=== PATIENT | male | born 1950 | race Caucasian/White ===

== ENCOUNTER 2016-07-23 08:02 | Inpatient (IN) | payer MEDICARE, OTHER ==
[2016-07-21 16:42] LABS: INTERNATIONAL NORMAL RATI 1.2 UNITS (-); PARTIAL THROMBO TIME 29.7 SEC (22.5-37.2)
[2016-07-21 16:43] LABS: BASOPHILS 0.6 %; BASOPHILS ABSOLUTE 0.06 10/3/uL (0.0-0.16); EOSINOPHILS 6.4 %; EOSINOPHILS ABSOLUTE 0.67 10/3/uL (0.0-0.53); HEMATOCRIT 39.5 % (40.0-51.0); HEMOGLOBIN 12.9 g/dL (13.6-17.8); IMMATURE GRANULOCYTES 0.2 %; IMMATURE GRANULOCYTES ABSOLUTE 0.02 10/3/uL (0.0-0.11); LYMPHOCYTES ABSOLUTE 1.99 10/3/uL (0.67-4.30); MANUAL DIFF NO %; MEAN CORPUS HGB CONC 32.7 g/dL (32.0-36.0); MEAN CORPUSCULAR HEMOGLOB 26.7 pg (26.0-34.0); MEAN CORPUSCULAR VOLUME 81.6 fL (80-100); MEAN PLATELET VOLUME 9.1 fL (9.2-13.0); MONOCYTES ABSOLUTE 0.84 10/3/uL (0.21-1.20); NEUTROPHILS 65.8 %; NEUTROPHILS ABSOLUTE 6.89 10/3/uL (2.02-8.40); PLATELET COUNT 359 10/3/uL (150-400); RBC DISTRIBUTION WIDTH 14.2 % (12.0-16.0); RED CELL COUNT 4.84 10/6/uL (4.7-6.1); WHITE BLOOD CELLS 10.5 10/3/uL (4.5-10.5)
[2016-07-21 16:54] LABS: ALBUMIN 3.9 G/DL (3.5-5.0); ALKALINE PHOSPHATASE 82 U/L (45-117); BUN (BLOOD UREA NITROGEN) 18 MG/DL (6-23); CALCIUM, SERUM 8.5 MG/DL (8.5-10.4); CHLORIDE, SERUM 105 MMOL/L (96-112); CO2 (CARBON DIOXIDE) 26 MMOL/L (24-34); CREATININE 1.03 MG/DL (0.70-1.30); GFR AFRICAN AMERICAN 88 ML/MIN (>=60); GFR NON AFRICAN AMERICAN 76 ML/MIN (>=60); GLOBULIN 3.8 G/DL (2.5-4.1); GLUCOSE, SERUM 93 MG/DL (60-99); POTASSIUM, SERUM 3.9 MMOL/L (3.5-5.3); SGOT(AST) 22 U/L (5-40); SGPT(ALT) 34 U/L (5-65); SODIUM, SERUM 139 MMOL/L (135-148); TOTAL BILIRUBIN 0.5 MG/DL (0-1.2); TOTAL PROTEIN 7.7 G/DL (6.0-8.5)
--- NOTE | ~2016-07-23 | OP ---
Record Of Operation [facility] [address] [place]. 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 PROCEDURE: Laparoscopic right colectomy with resection of terminal ileum and right colon and ileocolonic anastomosis, open partial right hepatectomy. SURGEON: Don Quiñonez M.D. ANESTHESIA: General with intubation. COMPLICATIONS: None. ESTIMATED BLOOD LOSS: 400 mL. SPECIMENS: Terminal ilium, right colon, proximal transverse colon, and partial right hepatectomy. LAP AND SPONGE COUNT: Correct x3. DRAINS: Emil-Godinez in abdominal cavity, Ozark in subcutaneous tissue. BRIEF HISTORY: This 65-year-old male was recently found to have a large mass in the right colon, which on biopsy was found to be malignant. His metastatic workup revealed a single mass in the right posterior hepatic lobe laterally with no evidence for disease elsewhere. It was felt that laparoscopic right colectomy, possible laparotomy, with partial right hepatectomy was indicated. This procedure, the risks, benefits, and alternatives, including not limited to the risk for bleeding, infection, enterotomy, injury to any abdominal structure, postop small bowel obstruction, ileus, incisional hernia, dehiscence, anastomotic leak, requiring reoperation with ileostomy, ureteral injury, prolonged bile leak, bleeding from the liver, and unforeseen complications including deep venous thrombosis, pulmonary embolus, myocardial infarction, stroke, pneumonia, and , were fully and completely explained to the patient and his family at length on several occasions prior to surgery. The fact that this was a major operation with risk for major morbidity and mortality has been explained. The expected length of recovery has been explained. The patient and family had questions, which were answered. They clearly understood the risks and agreed to surgery as planned. It should be noted the hepatic metastasis was in the posterior section of segment 6 of the right hepatic lobe. Record Of Operation [facility] [id number] [place]. [address] NAME: YISEL BLACK : 50 STATUS : ADM IN PAT#: [id number] AGE: 65 ADM/REG DATE : 07/23/16 MR#: [id number] REPORT SERV DATE: 07/23/16 DICTATED BY: DON QUIÑONEZ III DATE: 07/23/16 REPORT STATUS : Draft TRANSCRIBED BY: HANNA DATE: 07/23/16 FINDINGS: The patient had a large cancer in the mid right colon. He had a large cancer in the segment 6 of the right hepatic lobe posteriorly. There was no evidence for disease elsewhere. Clear margins were obtained from each specimen. DESCRIPTION OF PROCEDURE: After being properly identified and after discussing the risks of surgery with the patient and family again in the preoperative area and after an appropriate bowel preparation at home, the patient was taken to the operating room and placed in supine position on the operating room table. General anesthesia was administered. He was intubated without difficulty. A Muro catheter was inserted. The abdomen was prepped and draped sterilely in the usual fashion. After an appropriate "time-out" per JCAHO standards, a small transverse incision was made just below the umbilicus. The skin and fascia on either side of this were elevated with towel clips. A Veress needle was placed through the incision into the peritoneal cavity. Correct position of the needle in the peritoneal cavity was confirmed by the hanging drop test. The abdominal cavity was then insufflated to about 13 mmHg of carbon dioxide. Correct position of air in the peritoneal cavity was confirmed by palpation. The Veress needle was removed and replaced with a 10 mm trocar. The laparoscope was placed through this. A 5 mm trocar was then placed in the midline, midway between the umbilicus and xiphoid process, under direct vision with the laparoscope. Another 5 mm trocar was placed in the midline in the suprapubic area, also under direct vision with the laparoscope. The abdomen was inspected. The area which had been tattooed in the mid right colon was identified. There was no evidence for carcinomatosis or disease elsewhere. The posterior aspect of the right lobe of the liver could not be visualized laparoscopically. The portion of the liver which could be visualized was normal. The appropriate instruments were placed through the trocars. The right colon was grasped and retracted medially. Using sharp dissection, peritoneal reflection of the right colon was divided along the line of Toldt, from the cecum to the hepatic flexure. Full and complete mobilization of the right colon was performed. There were a band of adhesions between the terminal ileum and the right lateral pelvis and this was divided so as to allow for full mobilization of the terminal ileum. After adequate mobilization, a right subcostal incision was made. The incision was continued through subcutaneous tissue. Hemostasis was controlled with cautery. The incision was continued through all layers of fascia. The trocars were removed. The right colon was mobilized into the wound. There was noted be a large mass at the area, which had been tattooed. There was no evidence for carcinomatosis or disease elsewhere. We were able to visualize the single focus of hepatic metastasis in segment in the right posterior aspect of the right lobe of the liver. With the right colon fully mobilized, we selected a point for division of terminal ileum proximal to the ileocecal valve. A window was made in mesentery to the ileum at this point and a SKYLAR stapler was used about the ileum at this point. We then selected a point for division of the transverse colon just beyond the hepatic flexure. A window was made in the mesentery of the colon at this point and a SKYLAR stapler was used about the colon at this point. The mesentery to the right colon was then divided along its base, using Harmonic scalpel. This was done along the base of the mesentery so as to perform the correct Record Of Operation [address] [address] NAME: YISEL BLACK : 50 STATUS : ADM IN PAT#: [id number] AGE: 65 ADM/REG DATE : 07/23/16 MR#: [id number] REPORT SERV DATE: 07/23/16 DICTATED BY: DON QUIÑONEZ III DATE: 07/23/16 REPORT STATUS : Draft TRANSCRIBED BY: MODL DATE: 07/23/16 oncologic dissection of the lymphovascular part of the right colon. The right colon was thus removed and sent to pathology and interpreted as containing the tumor with clear margins. We then performed a trhy-sr-uvie anastomosis between the divided terminal ilium and the proximal transverse colon. This was performed by lining the antimesenteric border of the small bowel with antimesenteric border of the colon with interrupted 3-0 silk sutures. A small opening was then made in the antimesenteric border of the small bowel and corresponding antimesenteric border of the colon. A SKYLAR stapler was placed through this and fired. The defect created by the stapler was then closed with a TA60 stapler. This staple line was oversewn with interrupted 3-0 silk sutures. The "crotch" anastomosis was secured with 3-0 silk sutures. Upon completion of this, the anastomosis was widely patent to palpation. It was not twisted or kinked in any way, it was not under any tension. The mesenteric defect was closed with a running 3-0 chromic suture. Again, the anastomosis was patent to palpation, not twisted or kinked in any way, and not under any tension. We then turned our attention to the liver. The right lobe of the liver was mobilized medially by dividing the peritoneal reflections posteriorly. Wide and complete mobilization of liver was performed. We then identified the tumor, which was again as described. Large 0 chromic hepatic sutures were placed in a circular fashion around the tumor so as to have at least a 1 cm margin grossly. The capsule of the liver was then scored using the cautery along the line of dissection. We then began our dissection using finger fracture technique. The major vessels and bile ducts were individually clipped or ligated. Using the cautery, the entire segment of the liver was removed. This was a nonanatomic resection. The mass appeared to be some 3 cm in diameter. The entire mass of the liver was resected and oriented with sutures and sent to pathology. It was interpreted that the margin between the 9 and 12 o'clock position was close, but clear. For this reason, a revised 9 to 12 o'clock margin of the liver was taken using the cautery. This was sent separately for permanent pathology. The true margin was marked with the ink. Upon completion of this, the entire cut liver surface was cauterized with argon beam laser to assure hemostasis. Vigorous ablation of the edge of the resection site was performed so as to fulgurate at least another 4 to 5 mm of liver along the entire resection bed. Hemostasis was assured. Evarrest sealant was placed over this. The area was irrigated copiously with saline and hemostasis was assured. Again, the entire resection bed was fulgurated with argon beam laser, which would destroy another 3 to 4 mm of liver parenchyma. Emil-Godinez drain was then brought through a separate stab wound and placed in the right upper quadrant. Hemostasis was assured in all areas. The fascia was closed in two layers with a running looped #1 PDS suture and the subcutaneous tissue was closed with a running 3- 0 chromic suture over a Ozark drain, which was brought out through the lateral aspect of the incision. The skin was closed with running subcuticular 4-0 Monocryl stitch. The fascia of the infraumbilical incision was closed with 0 Vicryl suture and the trocar sites were closed with running subcuticular 4-0 Monocryl stitches. Dressings were applied. Anesthesia was reversed. The patient was taken to the recovery room in stable condition. He tolerated the procedure well. His family was informed of results of surgery. The Record Of Operation [facility] [address] [place]. [address] NAME: YISEL BLACK : 50 STATUS : ADM IN [facility]#: [id number] AGE: 65 ADM/REG DATE : 07/23/16 MR#: [id number] REPORT SERV DATE: 07/23/16 DICTATED BY: DON QUIÑONEZ III DATE: 07/23/16 REPORT STATUS : Draft TRANSCRIBED BY: HANNA DATE: 07/23/16 patient will remain in the hospital for postoperative care. MELANIA/HANNA Don Quiñonez III, M.D. / [id number] CC: Itzel Schwartz III, M.D.
--- NOTE | ~2016-07-23 | PREOPHP ---
PreOp History and Physical [address] [place]. [address] NAME: YISEL BLACK : 50 STATUS : PRE IN PAT#: [id number] AGE: 65 ADM/REG DATE : MR#: [id number] REPORT SERV DATE: 07/20/16 DICTATED BY: DON QUIÑONEZ III DATE: 07/20/16 REPORT STATUS : Draft TRANSCRIBED BY: MODL DATE: 07/20/16 HISTORY OF PRESENT ILLNESS: This 65-year-old male comes to the operating room for laparoscopic right colectomy, possible laparotomy, with partial right hepatectomy. The patient recently underwent a screening colonoscopy. He was found to have a large malignant mass in the proximal right colon. His workup showed evidence for a single large hepatic metastasis to the posterior aspect of the right lobe of the liver. The patient has no evidence for disease elsewhere. He comes now for laparoscopic right colectomy, possible laparotomy, with open partial right hepatectomy. The fact that this is a major operation with risk for major morbidity and mortality has been explained. The option of performing these procedures separately rather than jointly has been offered to the patient, but declined. PAST MEDICAL HISTORY: 1. Atrial fibrillation. 2. Sleep apnea. 3. Asthma. MEDICATIONS: Aspirin and diltiazem. ALLERGIES: NONE. PAST SURGICAL HISTORY: Includes sinus surgery and hernia surgery x2. FAMILY HISTORY: Positive for lung cancer and kidney cancer. SOCIAL HISTORY: No history of tobacco or alcohol use. The patient is a dentist. He is and lives locally. REVIEW OF SYSTEMS: The patient complains of easy bruising and abnormal bleeding. His 14-point review of systems is otherwise unremarkable. PHYSICAL EXAMINATION: GENERAL: The patient is a male in no acute distress. He is alert and oriented x3. VITAL SIGNS: Blood pressure 138/85, pulse 65, temperature 97.2. HEENT: Unremarkable. NEUROLOGIC: Cranial nerves 2 through 12 are normal. LUNGS: Clear. CARDIAC: Normal. ABDOMEN: Soft and nontender. EXTREMITIES: Normal without edema. LABORATORY DATA: Colonoscopy shows a large mass in the proximal right colon. This was biopsied and found to be an invasive adenocarcinoma. The area was tattooed. His imaging workup shows evidence for a large right posterior hepatic mass consistent with PreOp History and Physical [address] [place]. [address] NAME: YISEL BLACK : 50 STATUS : PRE IN PAT#: [id number] AGE: 65 ADM/REG DATE : MR#: [id number] REPORT SERV DATE: 07/20/16 DICTATED BY: DON QUIÑONEZ III DATE: 07/20/16 REPORT STATUS : Draft TRANSCRIBED BY: HANNA DATE: 07/20/16 metastatic disease. ASSESSMENT: 1. A 65-year-old male with large right colon cancer, associated with single hepatic metastasis. 2. Atrial fibrillation. 3. Sleep apnea. PLAN: The patient comes to the operating room now for laparoscopic right colectomy, with partial hepatic resection of the involved portion of the right hepatic lobe. The procedure risks, benefits, and alternatives, including but not limited to the risk for bleeding, infection, enterotomy, injury to any abdominal structure, postop small bowel obstruction, ileus, incisional hernia, dehiscence, anastomotic leak requiring reoperation with ileostomy, ureteral injury, prolonged bile leak, injury to any structure in or around the liver including the hepatic artery or hepatic veins, possibility of massive bleeding from the liver surface and unforeseen complications including deep venous thrombosis, pulmonary embolus, myocardial infarction, stroke, pneumonia, and , have been fully and completely explained to the patient and his family at length prior to surgery. The fact that this is a major operation with significant risk for morbidity and mortality has been explained. The option of performing these procedures separately rather than simultaneously has been offered to the patient, but declined. The expected length of recovery has been explained. The patient's questions have been answered. He clearly understands the risks and agrees to surgery as planned. MELANIA/HANNA Don Quiñonez III, M.D. / [id number] CC: Don Quiñonez III, M.D.
--- NOTE | ~2016-07-23 | CN ---
Consultation Report [facility] [id number] [facility] [place]. [address] NAME: YISEL BLACK : 50 STATUS : ADM IN [facility]#: [id number] AGE: 65 ADM/REG DATE : 07/23/16 MR#: [id number] REPORT SERV DATE: 07/27/16 DICTATED BY: MELLO MANUEL DATE: 07/27/16 REPORT STATUS : Draft TRANSCRIBED BY: MODKendrick DATE: 07/27/16 CONSULTATION DATE OF CONSULTATION: 07/24/2016 REASON FOR THE VISIT: Atrial fibrillation. HISTORY OF PRESENT ILLNESS: Mr. Black is a 65-year-old man who was here for a back surgery, who has had perioperative atrial fibrillation. He has known paroxysmal atrial fibrillation and is medically managed at home. He recently saw my partner, Dr. Ramirez who cleared him for the surgery. He had a negative stress test. The patient is presently in the intensive care unit, but is resting comfortably. He has some pain issues from his surgery, but he does not feel chest pain, new shortness of breath, or palpitations. PAST MEDICAL HISTORY: 1. Paroxysmal atrial fibrillation. 2. History of ventricular tachycardia. 3. History of rotator cuff problems. SOCIAL HISTORY: Nonsmoker. His is not in the room at this time. FAMILY HISTORY: Noncontributory. HOME MEDICATIONS: 1. Aspirin 325 mg daily. 2. Cardizem 30 mg t.i.d. ALLERGIES: HE STATES THAT HE IS ALLERGIC TO GENERAL ANESTHESIA. REVIEW OF SYSTEMS: A 10-system review was asked and is negative except for noted above in the history of present illness from a preoperative standpoint. As above, there are some pain issues now. No palpitations or chest pain as above. PHYSICAL EXAMINATION: VITAL SIGNS: Mr. Black is afebrile. Heart rate is about 90. Systolic blood pressure 120. GENERAL: Mr. Black is a well-developed man, in no acute distress. He is alert and oriented to person and place. HEENT: Exam is negative. NECK: No JVD is seen in the neck. LUNGS: Clear. HEART: Tones are regular. Not particularly fast. ABDOMEN: Exam is negative. He has good bowel sounds. EXTREMITIES: Exam does not show edema. Consultation Report [place] [id number] [facility] [place]. [address] NAME: YISEL BLACK : 50 STATUS : ADM IN PAT#: [id number] AGE: 65 ADM/REG DATE : 07/23/16 MR#: [id number] REPORT SERV DATE: 07/27/16 DICTATED BY: MELLO MANUEL DATE: 07/27/16 REPORT STATUS : Draft TRANSCRIBED BY: HANNA DATE: 07/27/16 NEUROLOGIC: He moves all four extremities equally. He has normal speech. SKIN: Exam shows a little bit of bruising. No rash. LABORATORY DATA: White blood cell count of 16, hematocrit 32, platelet count 297. INR 1.5. Sodium 140, potassium 3.5, BUN 11, and creatinine 1.1. Electrocardiogram: This demonstrates atrial fibrillation with a rapid ventricular response. Telemetry: Atrial fibrillation with a controlled ventricular response. IMPRESSION: Perioperative paroxysmal atrial fibrillation. PLAN: At this time, Mr. Black is rate controlled. He can be on his home Cardizem orally. We can wean off the IV Cardizem as long as his heart rate is reasonable. No anticoagulation at this time secondary to recent back surgery. His CHADS-VASc score is low when he only takes aspirin at home. We will follow while he is here. Thank you very much for the consultation. [facility]/HANNA Mello Manuel M.D. / [id number] CC: Itzel Schwartz III, D.O.
--- NOTE | ~2016-07-23 | DS ---
Discharge Summary [facility] [address] [place]. 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 PATHOLOGY: ( ) DISCHARGE MEDICATIONS: Aspirin 325 mg daily, Cardizem 30 mg every eight hours, melatonin 5 mg at bedtime, Percocet 7.5/325 one tablet three times a day as needed. CONDITION ON DISCHARGE: Stable. DISPOSITION: The patient was discharged home on a soft diet with activities as instructed. He would follow up with me, 08/05/2016. HOSPITAL COURSE: This is a 65-year-old man, who was recently found to have a large mass in the right colon, which on biopsy was found to be malignant. His metastatic workup revealed a single mass in the right posterior hepatic lobe laterally with no evidence of disease elsewhere. Treatment options were discussed and it was elected to proceed with surgical intervention. He was admitted to the hospital for further evaluation and treatment. Upon admission, he was taken to the operating room, where he underwent the above-mentioned procedure. He tolerated this well. There were no complications. On postop day #1, he had no new complaints. He was alert and comfortable. Clear liquids were started. His central line was removed. He was seen by Dr. Mello Manuel regarding atrial fibrillation. The patient had developed perioperative atrial fibrillation. He has known paroxysmal atrial fibrillation and is medically managed at home. He had recently seen Dr. Ramirez, who had cleared him for surgery. He had a negative stress test. He was presently in the intensive care unit, but was resting comfortably. He did have some pain issues from his surgery, but he did not feel chest pain, new shortness of breath, or palpitations. The electrocardiogram demonstrated atrial fibrillation with rapid ventricular response. Telemetry revealed atrial fibrillation with controlled ventricular response. At this time, the patient was rate controlled. He was going to be placed on his home Cardizem orally. We would wean him off the IV Cardizem as long as his heart rate was reasonable. No anticoagulation would be given at this time secondary to his recent back surgery. He was evaluated by Physical Therapy. On 07/25/2106, he had good pain control. He had a low-grade temperature. His abdomen was soft. Full liquids were started. He was going to be transferred to the floor. He was in a normal sinus rhythm. He was on oral Cardizem. He had good effort with incentive spirometry. On 07/26/2006, he was alert and comfortable. Muro catheter was removed. Full liquids were continued. The epidural catheter was removed and the tip was intact. The next day, he did complain of some incisional pain. We encouraged him to increase his activity. Full liquids were continued. He was progressing well. He was in a normal sinus rhythm. On 07/28/2016, he felt well and wanted to go home. He was eating okay. He was passing stool. Discharge instructions were given. Due to his improved and stable condition, he was discharged home with the above-stated instructions. Discharge Summary [place] [id number] [facility] [place]. [address] NAME: YISEL BLACK : 50 STATUS : DIS IN PAT#: [id number] AGE: 65 ADM/REG DATE : 07/23/16 MR#: [id number] REPORT SERV DATE: 08/04/16 DICTATED BY: DON QUIÑONEZ III DATE: 08/03/16 REPORT STATUS : Draft TRANSCRIBED BY: HANNA DATE: 08/03/16 Information collected by: Vikki Perdomo I submit the above information as my discharge summary. TG/HANNA Don Quiñonez III, M.D. / [id number] CC: Itzel Schwartz III, M.D. Michael C Allan, M.D.
[~2016-07-23 08:02] MED LIST: ASA5GR PO; CARD30 PO; MELATONIN5 M1 PO
[2016-07-23 18:53] LABS: HEMOGLOBIN 11.4 g/dL (13.6-17.8)
[2016-07-24 00:30] LABS: HEMATOCRIT 32.5 % (40.0-51.0); HEMOGLOBIN 10.3 g/dL (13.6-17.8)
[2016-07-24 04:29] LABS: INTERNATIONAL NORMAL RATI 1.5 UNITS (-); PARTIAL THROMBO TIME 35.4 SEC (22.5-37.2)
[2016-07-24 04:32] LABS: BASOPHILS 0.2 %; BASOPHILS ABSOLUTE 0.03 10/3/uL (0.0-0.16); EOSINOPHILS 0.6 %; HEMATOCRIT 32.1 % (40.0-51.0); HEMOGLOBIN 10.5 g/dL (13.6-17.8); IMMATURE GRANULOCYTES 0.2 %; IMMATURE GRANULOCYTES ABSOLUTE 0.04 10/3/uL (0.0-0.11); LYMPHOCYTES 10.4 %; LYMPHOCYTES ABSOLUTE 1.68 10/3/uL (0.67-4.30); MEAN CORPUS HGB CONC 32.7 g/dL (32.0-36.0); MEAN CORPUSCULAR HEMOGLOB 26.9 pg (26.0-34.0); MEAN CORPUSCULAR VOLUME 82.1 fL (80-100); MONOCYTES 9.8 %; MONOCYTES ABSOLUTE 1.57 10/3/uL (0.21-1.20); NEUTROPHILS 78.8 %; NEUTROPHILS ABSOLUTE 12.68 10/3/uL (2.02-8.40); PLATELET COUNT 297 10/3/uL (150-400); RBC DISTRIBUTION WIDTH 14.3 % (12.0-16.0); RED CELL COUNT 3.91 10/6/uL (4.7-6.1)
[2016-07-24 04:34] LABS: MANUAL DIFF NO %; WHITE BLOOD CELLS 16.1 10/3/uL (4.5-10.5)
[2016-07-24 04:35] LABS: PROTIME (NOT ORD) 18.1 SEC (12.0-14.5)
[2016-07-24 04:54] LABS: ALBUMIN 3.2 G/DL (3.5-5.0); CHLORIDE, SERUM 104 MMOL/L (96-112); CO2 (CARBON DIOXIDE) 26 MMOL/L (24-34); CREATININE 1.11 MG/DL (0.70-1.30); GFR AFRICAN AMERICAN 80 ML/MIN (>=60); GFR NON AFRICAN AMERICAN 69 ML/MIN (>=60); POTASSIUM, SERUM 3.5 MMOL/L (3.5-5.3); SGOT(AST) 173 U/L (5-40); SGPT(ALT) 154 U/L (5-65); SODIUM, SERUM 140 MMOL/L (135-148); TOTAL BILIRUBIN 0.9 MG/DL (0-1.2)
[2016-07-24 04:55] LABS: A/G RATIO 1.2 (0.7-1.9); ALKALINE PHOSPHATASE 58 U/L (45-117); BUN (BLOOD UREA NITROGEN) 11 MG/DL (6-23); GLOBULIN 2.6 G/DL (2.5-4.1); GLUCOSE, SERUM 121 MG/DL (60-99); TOTAL PROTEIN 5.8 G/DL (6.0-8.5)
[2016-07-24 10:16] LABS: HEMATOCRIT 32.6 % (40.0-51.0); HEMOGLOBIN 10.7 g/dL (13.6-17.8)
[2016-07-24 16:57] LABS: HEMATOCRIT 32.1 % (40.0-51.0); HEMOGLOBIN 10.4 g/dL (13.6-17.8)
[2016-07-25 04:19] LABS: BASOPHILS 0.2 %; BASOPHILS ABSOLUTE 0.03 10/3/uL (0.0-0.16); EOSINOPHILS 3.2 %; EOSINOPHILS ABSOLUTE 0.48 10/3/uL (0.0-0.53); HEMATOCRIT 29.7 % (40.0-51.0); HEMOGLOBIN 9.7 g/dL (13.6-17.8); IMMATURE GRANULOCYTES 0.3 %; IMMATURE GRANULOCYTES ABSOLUTE 0.05 10/3/uL (0.0-0.11); LYMPHOCYTES 9.2 %; LYMPHOCYTES ABSOLUTE 1.38 10/3/uL (0.67-4.30); MEAN CORPUS HGB CONC 32.7 g/dL (32.0-36.0); MEAN CORPUSCULAR HEMOGLOB 26.9 pg (26.0-34.0); MEAN CORPUSCULAR VOLUME 82.3 fL (80-100); MEAN PLATELET VOLUME 9.4 fL (9.2-13.0); MONOCYTES 10.3 %; MONOCYTES ABSOLUTE 1.55 10/3/uL (0.21-1.20); NEUTROPHILS 76.8 %; NEUTROPHILS ABSOLUTE 11.59 10/3/uL (2.02-8.40); PLATELET COUNT 277 10/3/uL (150-400); RBC DISTRIBUTION WIDTH 14.2 % (12.0-16.0); RED CELL COUNT 3.61 10/6/uL (4.7-6.1); WHITE BLOOD CELLS 15.1 10/3/uL (4.5-10.5)
[2016-07-25 04:20] LABS: MANUAL DIFF NO %
[2016-07-25 04:35] LABS: ALBUMIN 2.8 G/DL (3.5-5.0); ALKALINE PHOSPHATASE 60 U/L (45-117); CALCIUM, SERUM 7.6 MG/DL (8.5-10.4); CHLORIDE, SERUM 103 MMOL/L (96-112); CO2 (CARBON DIOXIDE) 29 MMOL/L (24-34); GFR AFRICAN AMERICAN 81 ML/MIN (>=60); GFR NON AFRICAN AMERICAN 70 ML/MIN (>=60); GLOBULIN 2.9 G/DL (2.5-4.1); GLUCOSE, SERUM 114 MG/DL (60-99); POTASSIUM, SERUM 3.8 MMOL/L (3.5-5.3); SGOT(AST) 140 U/L (5-40); SGPT(ALT) 124 U/L (5-65); SODIUM, SERUM 138 MMOL/L (135-148); TOTAL BILIRUBIN 0.7 MG/DL (0-1.2); TOTAL PROTEIN 5.7 G/DL (6.0-8.5)
[2016-07-25 04:36] LABS: BUN (BLOOD UREA NITROGEN) 6 MG/DL (6-23)
[2016-07-26 05:03] LABS: BASOPHILS 0.2 %; BASOPHILS ABSOLUTE 0.02 10/3/uL (0.0-0.16); EOSINOPHILS 5.9 %; EOSINOPHILS ABSOLUTE 0.72 10/3/uL (0.0-0.53); HEMATOCRIT 27.7 % (40.0-51.0); HEMOGLOBIN 9.1 g/dL (13.6-17.8); IMMATURE GRANULOCYTES 0.2 %; IMMATURE GRANULOCYTES ABSOLUTE 0.03 10/3/uL (0.0-0.11); LYMPHOCYTES 12.1 %; LYMPHOCYTES ABSOLUTE 1.48 10/3/uL (0.67-4.30); MEAN CORPUS HGB CONC 32.9 g/dL (32.0-36.0); MEAN CORPUSCULAR HEMOGLOB 26.9 pg (26.0-34.0); MEAN PLATELET VOLUME 8.6 fL (9.2-13.0); MONOCYTES 10.1 %; MONOCYTES ABSOLUTE 1.24 10/3/uL (0.21-1.20); NEUTROPHILS 71.5 %; NEUTROPHILS ABSOLUTE 8.78 10/3/uL (2.02-8.40); PLATELET COUNT 257 10/3/uL (150-400); RBC DISTRIBUTION WIDTH 14.4 % (12.0-16.0); RED CELL COUNT 3.38 10/6/uL (4.7-6.1); WHITE BLOOD CELLS 12.3 10/3/uL (4.5-10.5)
[2016-07-26 05:04] LABS: MANUAL DIFF NO %
[2016-07-26 05:21] LABS: A/G RATIO 0.8 (0.7-1.9); ALBUMIN 2.5 G/DL (3.5-5.0); ALKALINE PHOSPHATASE 57 U/L (45-117); BUN (BLOOD UREA NITROGEN) 5 MG/DL (6-23); CALCIUM, SERUM 7.9 MG/DL (8.5-10.4); CHLORIDE, SERUM 104 MMOL/L (96-112); CO2 (CARBON DIOXIDE) 27 MMOL/L (24-34); CREATININE 0.97 MG/DL (0.70-1.30); GFR AFRICAN AMERICAN 95 ML/MIN (>=60); GFR NON AFRICAN AMERICAN 82 ML/MIN (>=60); GLOBULIN 3.2 G/DL (2.5-4.1); GLUCOSE, SERUM 103 MG/DL (60-99); POTASSIUM, SERUM 3.9 MMOL/L (3.5-5.3); SGOT(AST) 85 U/L (5-40); SGPT(ALT) 94 U/L (5-65); SODIUM, SERUM 138 MMOL/L (135-148); TOTAL BILIRUBIN 0.6 MG/DL (0-1.2); TOTAL PROTEIN 5.7 G/DL (6.0-8.5)
[2016-07-27 06:23] LABS: BASOPHILS 0.3 %; BASOPHILS ABSOLUTE 0.03 10/3/uL (0.0-0.16); EOSINOPHILS 6.4 %; EOSINOPHILS ABSOLUTE 0.65 10/3/uL (0.0-0.53); HEMATOCRIT 27.2 % (40.0-51.0); HEMOGLOBIN 8.8 g/dL (13.6-17.8); IMMATURE GRANULOCYTES 0.2 %; IMMATURE GRANULOCYTES ABSOLUTE 0.02 10/3/uL (0.0-0.11); LYMPHOCYTES 13.7 %; LYMPHOCYTES ABSOLUTE 1.39 10/3/uL (0.67-4.30); MEAN CORPUS HGB CONC 32.4 g/dL (32.0-36.0); MEAN CORPUSCULAR VOLUME 80.2 fL (80-100); MEAN PLATELET VOLUME 9.2 fL (9.2-13.0); MONOCYTES 12.2 %; MONOCYTES ABSOLUTE 1.24 10/3/uL (0.21-1.20); NEUTROPHILS 67.2 %; NEUTROPHILS ABSOLUTE 6.83 10/3/uL (2.02-8.40); RBC DISTRIBUTION WIDTH 14.6 % (12.0-16.0); RED CELL COUNT 3.39 10/6/uL (4.7-6.1); WHITE BLOOD CELLS 10.2 10/3/uL (4.5-10.5)
[2016-07-27 06:27] LABS: MANUAL DIFF NO %; PLATELET COUNT 338 10/3/uL (150-400)
[2016-07-27 06:37] LABS: BUN (BLOOD UREA NITROGEN) 6 MG/DL (6-23); CALCIUM, SERUM 8.1 MG/DL (8.5-10.4); CHLORIDE, SERUM 103 MMOL/L (96-112); CO2 (CARBON DIOXIDE) 25 MMOL/L (24-34); CREATININE 0.97 MG/DL (0.70-1.30); GFR AFRICAN AMERICAN 95 ML/MIN (>=60); GFR NON AFRICAN AMERICAN 82 ML/MIN (>=60); GLUCOSE, SERUM 102 MG/DL (60-99); POTASSIUM, SERUM 3.8 MMOL/L (3.5-5.3); SODIUM, SERUM 136 MMOL/L (135-148)
[2016-07-28] MEDS ORDERED: PERCOCET 7.5/321 TAB PO (08:52)
== END 2016-07-28 10:00 | disposition home or self-care (01) | DRG 330 ==
LOC: SDC/OF 08:02 → PACU 14:29 → MIC 16:40 → 5SO 07-25 10:11
PROVIDERS: Surgery
PROC: 0FB13ZX Excision of Right Lobe Liver, Percutaneous Approach, Diagnostic (ICD-10-PCS; 2016-07-23)
PROC: 0DTF4ZZ Resection of Right Large Intestine, Percutaneous Endoscopic Approach (ICD-10-PCS; principal; 2016-07-23 10:15)
PROC: 0FB10ZZ Excision of Right Lobe Liver, Open Approach (ICD-10-PCS; 2016-07-23 10:15)
DX: C18.9 Malignant neoplasm of colon, unspecified (principal); C78.7 Secondary malignant neoplasm of liver and intrahepatic bile duct; I48.0 Paroxysmal atrial fibrillation; I97.89 Other postprocedural complications and disorders of the circulatory system, not elsewhere classified; Z79.82 Long term (current) use of aspirin; Z79.899 Other long term (current) drug therapy
CPT/HCPCS: 36415; 47000; 71010; 71020; 74183; 77012; 80048; 80053; 82378; 83735; 85014; 85018; 85025; 85610; 85730; 86850; 86900; 86901; 86920; 87641; 88307; 88309; 88333; 88341; 88342; 93005; 97161-GP; A9270-GY; A9581; C1751; C1769; C9113; J0690; J1644; J2250; J2710; J2765; J3010; P9045

== ENCOUNTER 2016-08-20 09:01 | Day surgery (SDC) | payer MEDICARE, OTHER ==
[2016-08-17 10:20] LABS: BASOPHILS 0.5 %; BASOPHILS ABSOLUTE 0.05 10/3/uL (0.0-0.16); EOSINOPHILS 7.7 %; EOSINOPHILS ABSOLUTE 0.75 10/3/uL (0.0-0.53); IMMATURE GRANULOCYTES 0.2 %; IMMATURE GRANULOCYTES ABSOLUTE 0.02 10/3/uL (0.0-0.11); LYMPHOCYTES 16.4 %; LYMPHOCYTES ABSOLUTE 1.61 10/3/uL (0.67-4.30); MEAN CORPUS HGB CONC 31.6 g/dL (32.0-36.0); MEAN CORPUSCULAR HEMOGLOB 25.5 pg (26.0-34.0); MEAN CORPUSCULAR VOLUME 80.7 fL (80-100); MONOCYTES 7.7 %; MONOCYTES ABSOLUTE 0.75 10/3/uL (0.21-1.20); NEUTROPHILS 67.5 %; NEUTROPHILS ABSOLUTE 6.61 10/3/uL (2.02-8.40); PLATELET COUNT 382 10/3/uL (150-400); RBC DISTRIBUTION WIDTH 13.9 % (12.0-16.0); WHITE BLOOD CELLS 9.8 10/3/uL (4.5-10.5)
[2016-08-17 10:21] LABS: HEMATOCRIT 34.2 % (40.0-51.0); HEMOGLOBIN 10.8 g/dL (13.6-17.8); RED CELL COUNT 4.24 10/6/uL (4.7-6.1)
[2016-08-17 10:38] LABS: A/G RATIO 0.9 (0.7-1.9); ALBUMIN 3.3 G/DL (3.5-5.0); ALKALINE PHOSPHATASE 97 U/L (45-117); BUN (BLOOD UREA NITROGEN) 19 MG/DL (6-23); CALCIUM, SERUM 8.5 MG/DL (8.5-10.4); CHLORIDE, SERUM 105 MMOL/L (96-112); CO2 (CARBON DIOXIDE) 26 MMOL/L (24-34); CREATININE 1.01 MG/DL (0.70-1.30); GFR AFRICAN AMERICAN 90 ML/MIN (>=60); GFR NON AFRICAN AMERICAN 78 ML/MIN (>=60); GLOBULIN 3.8 G/DL (2.5-4.1); GLUCOSE, SERUM 117 MG/DL (60-99); SGOT(AST) 22 U/L (5-40); SGPT(ALT) 38 U/L (5-65); SODIUM, SERUM 140 MMOL/L (135-148); TOTAL BILIRUBIN 0.9 MG/DL (0-1.2); TOTAL PROTEIN 7.1 G/DL (6.0-8.5)
--- NOTE | ~2016-08-20 | OP ---
Record Of Operation [facility] [address] [place]. [address] NAME: YISEL BLACK : 50 STATUS : [facility]#: [id number] AGE: 65 ADM/REG DATE : 08/20/16 MR#: [id number] REPORT SERV DATE: 08/20/16 DICTATED BY: DON QUIÑONEZ III DATE: 08/20/16 REPORT STATUS : Draft TRANSCRIBED BY: [email or web address] DATE: 08/20/16 DATE OF PROCEDURE: 08/20/2016 PREOPERATIVE DIAGNOSIS: Colorectal cancer with need for subclavian vein Port-A-Cath placement to allow for chronic IV access for chemotherapy. POSTOPERATIVE DIAGNOSIS: Colorectal cancer with need for subclavian vein Port-A-Cath placement to allow for chronic IV access for chemotherapy. PROCEDURE: Right subclavian vein Port-A-Cath placement with fluoroscopy. SURGEON: Dr. Don Quiñonez. ANESTHESIA: General with intubation. COMPLICATIONS: None. ESTIMATED BLOOD LOSS: Less than 5 mL. SPECIMENS: None. DRAINS: None. LAP AND SPONGE COUNT: Correct x3. BRIEF HISTORY: This 65-year-old male was recently diagnosed with colorectal cancer. He is status post appropriate surgical treatment. We have been asked by his medical oncologist to place a Port-A-Cath to allow for chronic IV access for chemotherapy. This procedure, i.e., Subclavian Port-A-Cath placement, the risks, benefits, and alternatives, including but not limited to the risk of bleeding, infection, pneumothorax, air embolus, pericardial tamponade, failure of the port to function, infection of the port or subclavian vein thrombosis requiring removal of the port, dislodgement of the Port-A-Cath tubing requiring extraction, and unforeseen complications including deep venous thrombosis, pulmonary embolus, myocardial infarction, stroke, pneumonia, and , were fully explained to the patient prior to surgery. His questions were answered. He understood the risks and agreed to the surgery as planned. DESCRIPTION OF PROCEDURE: After being appropriately identified, and after discussing risks of surgery with the patient again in the preoperative area, the patient was taken to the operating room and placed in the supine position on the operating room table. General anesthesia was administered, and the patient was intubated without difficulty. The upper chest and neck areas were prepped and draped sterilely in the usual fashion. After an appropriate "time-out" per JCAHO standards, a gauge needle was used to identify the right subclavian vein. The vein was identified on the first pass of the needle. A guidewire was passed through the needle and the needle was removed. Fluoroscopy was performed, confirming the tip of the guidewire to be in the correct position of superior vena cava. A small Record Of Operation [place] [id number] [place]. [address] NAME: YISEL BLACK : 50 STATUS : [facility] PAT#: [id number] AGE: 65 ADM/REG DATE : 08/20/16 MR#: [id number] REPORT SERV DATE: 08/20/16 DICTATED BY: DON QUIÑONEZ III DATE: 08/20/16 REPORT STATUS : Draft TRANSCRIBED BY: HANNA DATE: 08/20/16 transverse incision was then made at the exit site of the guidewire from the skin. A subcutaneous infraclavicular pocket was made of the appropriate size for the Port-A-Cath housing. The Port-A-Cath housing was connected to the tubing. The Port-A-Cath housing and tubing were flushed with a heparin solution, and the tubing was cut to the appropriate length. The introducer was then placed over the guidewire. The guidewire and inner dilator were removed. The Port-A-Cath tubing was then placed through the sheath as the sheath was peeled away. This went very smoothly. The Port-A-Cath housing was positioned in the infraclavicular pocket. It was secured in place with 2-0 silk sutures. It was accessed with a Vargas needle and noted to aspirate blood easily. It was then flushed with heparin solution noted to flush easily. Repeat fluoroscopy was performed, confirming the tip of the Port-A-Cath tubing to be in the correct position in superior vena cava. Hemostasis was assured. The subcutaneous tissue was closed with a running 3-0 Vicryl suture. The skin was closed with running subcuticular 4-0 Monocryl stitch. The incision was injected with 0.5% Marcaine. Dressings were applied. Anesthesia was reversed, and the patient was taken to recovery room in stable condition. The patient tolerated the procedure well. The patient will be discharged later when stable and comfortable after the chest x-ray has been cleared per Radiology. The patient's family was advised that the wound should be kept clean and dry for 48 hours, that there should be no driving for 2-3 days after surgery or while using narcotics, and the patient shall resume usual medications. The patient was asked to return in two weeks for followup or sooner for any fever, chills, wound drainage, or other problems prior to that time. RHJ/MODL Don Quiñonez III, M.D. / [id number] CC: Itzel Schwartz III, M.D.
--- NOTE | ~2016-08-20 | PREOPHP ---
PreOp History and Physical [place] [id number] [facility] [place]. [address] NAME: YISEL BLACK : 50 STATUS : [facility] PAT#: [id number] AGE: 65 ADM/REG DATE : MR#: [id number] REPORT SERV DATE: 08/20/16 DICTATED BY: ODN QUIÑONEZ III DATE: 08/06/16 REPORT STATUS : Draft TRANSCRIBED BY: MODL DATE: 08/06/16 HISTORY OF PRESENT ILLNESS: This 65-year-old male comes to the operating room for a subclavian vein Port-A-Cath placement to allow for chronic IV access for chemotherapy. The patient was recently diagnosed with stage IV right colon cancer, with a single right hepatic lobe metastasis. He is status post right colectomy and partial right hepatectomy. He now has no evidence for disease. We have been asked by his medical oncologist to place a Port-A-Cath to allow for chronic IV access for chemotherapy. PAST HISTORY: 1. History of stage IV right colon cancer as above, status post right colectomy and partial right hepatectomy as above, with no evidence for disease at this time clinically or radiographically. 2. History of atrial fibrillation. 3. Obstructive sleep apnea. 4. Asthma. MEDICATIONS: Aspirin and diltiazem. ALLERGIES: NONE. PAST SURGICAL HISTORY: Includes the above surgery plus surgery and hernia surgery x2. FAMILY HISTORY: Positive for lung cancer and kidney cancer. SOCIAL HISTORY: No history of tobacco or alcohol use. The patient is a dentist. He is . He lives locally. REVIEW OF SYSTEMS: The patient's 14-point review of systems is otherwise unremarkable except for abnormal bleeding. OBJECTIVE PHYSICAL EXAM: GENERAL: Reveals a male, in no acute distress. He is alert and oriented x3. HEENT: Unremarkable. Cranial nerves II through XII are normal. LUNGS: Clear. CARDIAC: Normal. ABDOMEN: Soft and nontender. ASSESSMENT: A 65-year-old male with, 1. Stage IV cancer, status post intervention as above with no evidence for disease at this time. 2. Atrial fibrillation. 3. Obstructive sleep apnea. PLAN: The patient comes to the operating room now for subclavian vein Port-A-Cath placement. This procedure, the risks, benefits, and alternatives, including not limited to the risk for PreOp History and Physical [facility] [address] [address] NAME: YISEL BLACK : 50 STATUS : [facility] [place] PAT#: [id number] AGE: 65 ADM/REG DATE : MR#: [id number] REPORT SERV DATE: 08/20/16 DICTATED BY: DON QUIÑONEZ III DATE: 08/06/16 REPORT STATUS : Draft TRANSCRIBED BY: MODL DATE: 08/06/16 bleeding, infection, pneumothorax, air embolus, pericardial tamponade, failure of the port to function, infection of the port or subclavian vein thrombosis requiring removal of the port, dislodgement of the Port-A-Cath tubing requiring extraction, and unforeseen complications including deep venous thrombosis, pulmonary embolus, myocardial infarction, stroke, pneumonia, and have been explained to the patient prior to surgery. His questions have been answered. He understands the risks and agrees to the surgery as planned. MELANIA/HANNA Don Quiñonez III, M.D. / [id number]
[~2016-08-20 09:01] MED LIST changes: +PERCOCET 7.5/321 TAB PO
== END 2016-08-20 14:15 | disposition home or self-care (01) ==
LOC: SDC 09:01
PROVIDERS: Surgery
PROC: 0JHD0XZ Insertion of Tunneled Vascular Access Device into Right Upper Arm Subcutaneous Tissue and Fascia, Open Approach (ICD-10-PCS; principal; 2016-08-20 10:15)
DX: C19 Malignant neoplasm of rectosigmoid junction (principal); I48.91 Unspecified atrial fibrillation; G47.33 Obstructive sleep apnea (adult) (pediatric); J45.909 Unspecified asthma, uncomplicated
CPT/HCPCS: 71010; 77001; 80053; 85025; 93005; C1751; J0690; J2250; J2370; J3010